=== PATIENT | female | born 1990 | race Caucasian/White ===

== ENCOUNTER 2018-05-05 10:22 | Day surgery (SDC) | payer OTHER ==
[2018-05-05] MEDS: SOD CHLORIDE 0.9% 1,000 ML IV (11:33)
[2018-05-05] MEDS ORDERED: CEFAZOLIN 2 GM/50 ML (PMX) 50 ML IVPB (13:00)
[2018-05-05] MEDS ORDERED: MEPERIDINE 25 MG INJ IV (15:00)
[2018-05-05] MEDS ORDERED: HYDROmorphONE 1 MG/5 ML IV SYRINGE IV ×2 (15:00)
[2018-05-05] MEDS ORDERED: MIDAZOLAM 1 MG/ML 2 ML INJ (15:13)
[2018-05-05] MEDS ORDERED: LIDOCAINE 2% (SDV) 5 ML INJ (15:13)
[2018-05-05] MEDS ORDERED: PROPOFOL 20 ML (15:13)
[2018-05-05] MEDS ORDERED: CEFAZOLIN 1 GM INJ (15:41)
[2018-05-05] MEDS ORDERED: KETOROLAC 30 MG INJ (15:41)
[2018-05-05] MEDS ORDERED: ONDANSETRON 4 MG INJ (15:42)
[2018-05-05] MEDS: BUPIVACAINE 0.25% (MPF) 30 ML INJ (15:58)
[2018-05-05] MEDS ORDERED: HYDROCODONE/APAP (5/325) TAB PO (16:00)
[2018-05-06] MEDS ORDERED: INFLUENZA VIRUS VACCINE 0.5 ML (DISPENSING) IM* (09:00)
== END 2018-05-05 18:05 | disposition home or self-care (01) ==
LOC: SDS 10:22
DX: D17.0 Benign lipomatous neoplasm of skin and subcutaneous tissue of head, face and neck (principal)
CPT/HCPCS: 14041; 84703; 88307